=== PATIENT | female | born 1930 | race Caucasian/White ===

== ENCOUNTER 2017-01-19 14:22 | Emergency (ER) | payer MEDICARE, BC ==
[~2017-01-19 14:22] MED LIST: ASAB PO; CARDCD180 PO; ELIQUIS 5 MG TAB5 MG PO; FLAGYL250 MG; FLECAINIDE100 MG PO; FLECAINIDE50 MG PO; GGDM5ML; HYDROCHLOROT12.5 MG PO; IRON325 MG PO; KLOR-CON M1010 MEQ PO; L20 PO; LEVAQUIN750 MG PO; LIPITOR10 PO; NORV5 PO; OMNICEF300 PO; PRILO PO; PROTONIX PO; T PO; VITAMIN B-121000 MC1 SL; [UNRECOGNIZED DRUG - REMARK]
[2017-01-19 16:04] LABS: BASOPHILS 0.6 %; BASOPHILS ABSOLUTE 0.04 10/3/uL (0.0-0.16); EOSINOPHILS 2.6 %; EOSINOPHILS ABSOLUTE 0.17 10/3/uL (0.0-0.53); ER CBC TAT 0 Hrs 05 Mins; IMMATURE GRANULOCYTES 0.2 %; IMMATURE GRANULOCYTES ABSOLUTE 0.01 10/3/uL (0.0-0.11); LYMPHOCYTES 19.4 %; LYMPHOCYTES ABSOLUTE 1.26 10/3/uL (0.67-4.30); MEAN CORPUS HGB CONC 33.3 g/dL (32.0-36.0); MEAN CORPUSCULAR HEMOGLOB 31.7 pg (26.0-34.0); MEAN CORPUSCULAR VOLUME 95.1 fL (80-100); MEAN PLATELET VOLUME 11.2 fL (9.2-13.0); MONOCYTES 7.4 %; MONOCYTES ABSOLUTE 0.48 10/3/uL (0.21-1.20); NEUTROPHILS 69.8 %; NEUTROPHILS ABSOLUTE 4.55 10/3/uL (2.02-8.40); PLATELET COUNT 229 10/3/uL (150-400); RBC DISTRIBUTION WIDTH 13.6 % (12.0-16.0); RED CELL COUNT 3.47 10/6/uL (4.0-5.6); WHITE BLOOD CELLS 6.5 10/3/uL (4.5-10.5)
[2017-01-19 16:05] LABS: MANUAL DIFF NO %
[2017-01-19 16:21] LABS: BUN (BLOOD UREA NITROGEN) 20 MG/DL (6-23); CALCIUM, SERUM 8.7 MG/DL (8.5-10.4); CHEST PAIN PROFILE TAT 0 Hrs 22 Mins; CHLORIDE, SERUM 105 MMOL/L (96-112); CO2 (CARBON DIOXIDE) 26 MMOL/L (24-34); CREATININE 1.29 MG/DL (0.55-1.02); GFR AFRICAN AMERICAN 44 ML/MIN (>=60); GFR NON AFRICAN AMERICAN 38 ML/MIN (>=60); GLUCOSE, SERUM 93 MG/DL (60-99); POTASSIUM, SERUM 3.7 MMOL/L (3.5-5.3); SODIUM, SERUM 142 MMOL/L (135-148); TROPONIN I <0.02 NG/ML (<0.05)
[2017-01-19 16:23] LABS: INTERNATIONAL NORMAL RATI 1.7 UNITS (-); PARTIAL THROMBO TIME 37.1 SEC (22.5-37.2)
[2017-01-19 16:24] LABS: PROTIME (NOT ORD) 19.4 SEC (12.0-14.5)
[2017-04-25] MEDS ORDERED: L40 PO (18:27)
[2017-04-26] MEDS ORDERED: ELIQUIS 2.5 MG2.5 MG PO (11:17)
[2017-04-26] MEDS ORDERED: [UNRECOGNIZED DRUG - OTHER] (11:17)
[2017-04-26] MEDS ORDERED: BENTYL20 PO (11:17)
[2017-04-26] MEDS ORDERED: FERROUS SULF325 M1 PO (11:18)
[2017-04-26] MEDS ORDERED: L40 PO (11:18)
[2017-04-26] MEDS ORDERED: PROTONIX PO (11:19)
[2017-04-26] MEDS ORDERED: KLOR-CON M2020 MEQ PO (11:19)
[2017-04-26] MEDS ORDERED: LOP25 PO (11:19)
[2017-04-26] MEDS ORDERED: ACET500CAP PO (11:20)
[2017-04-26] MEDS ORDERED: CYANO1000T PO (11:20)
[2017-04-26] MEDS ORDERED: LIDODERM TOP (16:44)
[2017-04-26] MEDS ORDERED: ULTRAM50 PO (16:45)
[2017-04-29] MEDS ORDERED: ULTRAM50 PO (11:58)
[2017-06-06] MEDS ORDERED: BENTYL20 PO (16:04)
[2017-06-06] MEDS ORDERED: MEG40 PO (16:04)
[2017-06-06] MEDS ORDERED: GGDM5ML PO (16:06)
== END 2017-01-19 17:43 | disposition home or self-care (01) ==
LOC: ER 14:22
PROVIDERS: Emergency Medicine
DX: R04.0 Epistaxis (principal); I48.91 Unspecified atrial fibrillation; Z86.73 Personal history of transient ischemic attack (TIA), and cerebral infarction without residual deficits; Z88.2 Allergy status to sulfonamides; Z88.8 Allergy status to other drugs, medicaments and biological substances; Z79.899 Other long term (current) drug therapy
CPT/HCPCS: 71010; 80048; 83735; 84484; 85025; 85610; 85730; 93005; 99284

== ENCOUNTER 2017-04-05 08:31 | Inpatient (IN) | payer MEDICARE, BC ==
--- NOTE | ~2017-04-05 | HP ---
History And Physical [place] [id number] [facility] [place]. [address] NAME: SREEKANTH MOSES : 32 STATUS : ADM Heather PAT#: [id number] AGE: 87 ADM/REG DATE : 04/05/17 MR#: [id number] REPORT SERV DATE: 04/05/17 DICTATED BY: DARWIN HESS DATE: 04/05/17 REPORT STATUS : Draft TRANSCRIBED BY: MODL DATE: 04/05/17 DATE OF ADMISSION: 04/05/2017 REASON FOR ADMISSION: Atrial fibrillation with rapid ventricular response. EXAMINING PHYSICIAN: Darwin Hess M.D. HISTORY: This is an 87-year-old white female, who has been having some diarrhea recently. Her primary care, Dr. Kilgore, believes this is due to anxiety and nervousness. She has permanent atrial fibrillation. She had a stroke from the permanent atrial fibrillation back in June and is on Eliquis now, and she had refused anticoagulants prior to that time. She has 60% coronary artery lesion according to daughters. She was having some right shoulder pain that woke her up out of sleep, and she was brought to the emergency room with atrial fibrillation with a rapid ventricular response. She has been quite nervous to Radha, nurse practitioner, who has given her morphine to help with her anxiety. Cardizem has helped control the heart rate. She is on diltiazem. Because she was having some problem with diarrhea, her primary care physician stopped her hydrochlorothiazide for 5 days. She has now had some pulmonary edema. She was having some kidney dysfunction prior to that. She was discovered to have an elevated D-dimer test on arrival, so a CTA of her chest was obtained. It did show no evidence of pulmonary emboli, but cardiomegaly and moderate interstitial edema including bilateral ground glass opacities. She has been seen by Pulmonology, Dr. Strickland, who felt she had no pulmonary pathology. She has no COPD or asthma and has no history of smoking. She also had moderate right posterior pleural effusion and left posterior pleural effusions with some compression atelectasis at bases to account for the shortness of breath. She has known mitral regurgitation and was actually on the operative list at [facility] and actually went to [place] for a mitral valve replacement though the manager behavior there declined to do it because she was fairly well compensated at the time. She follows closely with Dr. Banegas. PAST MEDICAL HISTORY: She had a stroke in June. She was hospitalized here at that time. There was a subacute right frontal stroke. She has severe mitral regurgitation with history of mitral valve prolapse. She had some encephalopathy associated with stroke on admission. She has chronic dysphagia and was thought to have hypoxemia though subsequent workup by Pulmonary was negative. 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 HOME MEDICATIONS: Include the following: Pantoprazole 40 mg p.o. daily, potassium chloride 10 mEq p.o. b.i.d., sodium chloride nasal spray, iron 65 mg [id number] 1 a day, acetaminophen if needed for pain, Maalox if needed for indigestion, Eliquis 5 mg p.o. b.i.d., B12 of 1000 mcg p.o. daily, Bentyl 20 mg p.o. p.r.n. diarrhea, diltiazem XR 180 mg History And Physical [address] [address] NAME: SREEKANTH MOSES : 32 STATUS : ADM Heather PAT#: [id number] AGE: 87 ADM/REG DATE : 04/05/17 MR#: [id number] REPORT SERV DATE: 04/05/17 DICTATED BY: DARWIN HESS DATE: 04/05/17 REPORT STATUS : Draft TRANSCRIBED BY: BRITNEY DATE: 04/05/17 p.o. daily, and HydroDIURIL 12.5 mg p.o. daily. SOCIAL HISTORY: She does not smoke or drink. She attends [employer] in [place]. She lives at home by herself and has been able to function well. FAMILY HISTORY: Strokes run in the family. REVIEW OF SYSTEMS: She had a cholecystectomy remotely and knee arthroscopy. She has coronary artery disease with 60% stenosis in the LAD in the past. She has some osteoarthritis, history of GERD for which she is on the pantoprazole. She does have chronic atrial fibrillation. No swelling in lower extremities. No melena, hematemesis, fits, seizures, convulsions, unilateral weakness, nausea, or vomiting. She has had a history of diarrhea, felt to be an irritable bowel syndrome. No blood in the stool, was thought by Dr. Kilgore to be dehydrated and therefore the hydrochlorothiazide was held. The remainder of the review of systems is negative. PHYSICAL EXAMINATION: GENERAL: A well-developed white female, in no acute distress. Slightly lethargic, sleeping during exam after morphine. VITAL SIGNS: Blood pressure 134/74, heart rate of 90, respiratory rate 18, afebrile. HEENT: EOMI. Sclerae clear. Conjunctivae pink. Eyes slightly deep set. NECK: No bruit without any JVD. CHEST: Clear to A and P. HEART: Irregularly irregular. S1, S2 without murmur, gallop, or click. ABDOMEN: Soft, slightly distended. Bowel sounds positive. Nontender. There is no mass. EXTREMITIES: Have no edema. Distal pulses are intact through the dorsalis pedis and posterior tibial. NEUROLOGIC: She withdraws to plantar stimulation. [employer] equal and symmetric bilaterally. Coordination intact. She has no tremor. She is symmetric and equal neurologically. LYMPHATICS: There is no adenopathy palpable. SKIN: Without rash, ecchymosis, or bruising. LABORATORY DATA: The BNP was 346. Arterial blood gases 7.34, 38, 133 on FiO2 28%. The CT of the chest as above. Portable chest showed pulmonary vascular congestion. The hemoglobin was 11.4, hematocrit 33, white count 8.3, platelets were 259,000. Lactate was 0.9. Sodium 133, potassium 3.9, creatinine 1.05, BUN 17, creatinine clearance was 40 mL a minute. Troponin was 0.03 and magnesium 2.5. ASSESSMENT: 1. Atrial fibrillation with rapid ventricular response. This may be a response to the congestive heart failure with pulmonary edema and exacerbation due to valvular heart disease. 2. Mitral regurgitation. Likely the cause of the pulmonary edema and vascular congestion in the lungs. 3. Pulmonary edema, possibly related to the cessation of the hydrochlorothiazide recently. History And Physical [address] [address] NAME: SREEKANTH MOSES : 32 STATUS : ADM Heather PAT#: [id number] AGE: 87 ADM/REG DATE : 04/05/17 MR#: [id number] REPORT SERV DATE: 04/05/17 DICTATED BY: DARWIN HESS DATE: 04/05/17 REPORT STATUS : Draft TRANSCRIBED BY: MODL DATE: 04/05/17 4. Chest pain, shoulder pain. We will repeat the troponin in the morning. The troponin being normal now would be attributable to other causes. 5. Hypertension, it was quite elevated on arrival, now down, and more reasonably controlled. 6. History of stroke in June. 7. Anticoagulation with Eliquis. 8. She has been having some weight loss recently though numbers cannot be documented and will follow up with Dr. Kilgore with this at a later date. PLAN: I will add small dose diuretic Lasix 20 mg IV and restart her hydrochlorothiazide and replace the potassium. I am going to change her from the Cartia XT which has allowed breakthrough tachycardia to metoprolol. If this is tolerable, I am going to go ahead and give her a dose of Toprol for rate control now and consult Dr. Banegas for confirmation and put her in the CDU and likely taper off the Cardizem drip very soon. The patient asked to not be resuscitated in the event of cardiac arrest though she would take attempts to support life in the event of change in heart rhythm or dehydration. DB/MODL Darwin Hess M.D. / [id number] CC: Eladio Cornejo Jr, MD Matthew Todd Gregg Shander, M.D. Thomas Mullady, M.D.
--- NOTE | ~2017-04-05 | DS ---
Discharge Summary [facility] [address] [place]. [address] NAME: SREEKANTH MOSES : 32 STATUS : DIS IN PAT#: [id number] AGE: 87 ADM/REG DATE : 04/07/17 MR#: [id number] REPORT SERV DATE: 04/09/17 DICTATED BY: DIETER PARK DATE: 04/08/17 REPORT STATUS : Draft TRANSCRIBED BY: MODL DATE: 04/08/17 ADMISSION DATE: 04/07/2017 DISCHARGE DATE: 04/08/2017 DISCHARGE DIAGNOSES: 1. Atrial fibrillation with rapid ventricular response. 2. Acute kidney injury, resolving. Most recent creatinine 1.28. 3. Acute pulmonary edema, resolved. 4. Severe mitral valve regurgitation and prolapse. 5. Hypoxemia. 6. History of cerebrovascular accident. DISCHARGE MEDICATIONS: Eliquis 5 mg twice a day, vitamin B12 1000 mcg daily, Protonix 40 mg daily, potassium chloride 10 mEq twice a day, Lopressor 25 mg twice a day, Tylenol 500 mg every six hours p.r.n., Maalox p.r.n., [place] nasal spray p.r.n., HydroDIURIL 12.5 mg daily, iron 65 mg woun-ntm-mreufri tablet daily, Bentyl 20 mg daily p.r.n. for IBS symptoms. HISTORY OF PRESENT ILLNESS: This is a very pleasant 87-year-old white female who presented originally with some diarrhea, anxiety, shortness of breath. Please see the initial H and P of Dr. Ruslan Meehan. This patient was admitted to the Hospitalist Service for further evaluation and treatment. Initially was placed on some diuresis. Lab work was ordered and followed, and she was placed on a beta-akash therapy for rate control. CONSULTANTS DURING THIS ADMISSION: Include [facility] Cardiology, Dr. Murillo, Dr. Gustafson, and Dr. Banegas. PROCEDURES AND IMAGING DURING THIS ADMISSION: Include a CTA of the chest showing no pulmonary embolus. Cardiomegaly with moderate interstitial edema including bilateral ground glass opacities. Moderate right posterior pleural effusion. Small left posterior pleural effusions with compressive atelectasis at the lung bases. Echocardiogram that showed ejection fraction of 50% to 55%, moderate pulmonary hypertension with severe posterior mitral leaflet prolapse, severe highly eccentric anteriorly directed mitral regurgitation, moderately dilated left atrium. HOSPITAL COURSE: As stated, the patient was given some diuresis with p.o. Lasix and she was changed over to metoprolol having been on Cardizem prior to this admission. Her heart rate improved with her pulse coming down into the 80s. She began to feel some better by the following day, but in review, her blood pressures were on the low end of normal, so an adjustment was made in metoprolol to 25 mg twice a day, which she tolerated better. Further discussion with the patient and family revealed that she had been worked up on a prior basis at [place] for her mitral valve, but was undergoing some followup planning, and workup for her mitral valve here in [place] now, and she will follow up with Dr. Banegas in the [facility] post discharge for further consideration and possibility of surgery in particular mitral valve clip. Her kidney function got slightly worse on the with creatinine bumping to 1.63. Her Lasix was held and she was given gentle IV hydration and her creatinine corrected back down to 1.28. She was felt safe for discharge home on Discharge Summary [address] [place]. [address] NAME: SREEKANTH MOSES : 32 STATUS : DIS IN PAT#: [id number] AGE: 87 ADM/REG DATE : 04/07/17 MR#: [id number] REPORT SERV DATE: 04/09/17 DICTATED BY: DIETER PARK DATE: 04/08/17 REPORT STATUS : Draft TRANSCRIBED BY: BRITNEY DATE: 04/08/17 04/08/2017 with the new medications as described above. Followup planning with Dr. Banegas and the [facility], and she will have home O2 at 2 L nasal cannula at discharge as well, as her room air sats with ambulation have been approximately 88%. Overall, patient is agreement with this plan going forward. Questions were answered at bedside extensively with both the daughter and patient. Please note greater than 30 minutes was spent on this discharge for medication teaching, followup planning, and further disposition. DICTATED BY: Dieter Park NP CSC/BRITNEY Dieter Park NP / [id number] CC: MD COCO Anderson MATTHEW J.
--- NOTE | ~2017-04-05 | CN ---
Consultation Report [facility] [address] [place]. [address] NAME: SREEKANTH MOSES : 32 STATUS : ADM Heather PAT#: [id number] AGE: 87 ADM/REG DATE : 04/05/17 MR#: [id number] REPORT SERV DATE: 04/06/17 DICTATED BY: MICHAEL MURILLO DATE: 04/05/17 REPORT STATUS : Draft TRANSCRIBED BY: MODL DATE: 04/05/17 CARDIOLOGY CONSULTATION DATE OF CONSULTATION: REASON FOR CONSULTATION: Atrial fibrillation with rapid ventricular rate. HISTORY OF PRESENT ILLNESS: The patient is an 87-year-old female with known permanent atrial fibrillation and chronic anticoagulation. History of severe mitral regurgitation with posterior leaflet mitral valve prolapse. The patient with reported GI bleed recently and chronically fatigued for the last week with poor appetite, not eating, and reportedly dehydrated. Recently seen by primary care, who stopped her diuretic approximately five days ago. The patient reports substernal chest discomfort when eating. Denies any exertional chest pain. Denies melena or hematochezia. The patient reportedly is currently undergoing evaluation for mitral valve repair or replacement at [facility]. The patient does report a four-day history of progressive dyspnea. On presentation, the patient was found to be in atrial fibrillation with rapid ventricular rate. The patient reports recent diarrhea with poor p.o. intake. PAST MEDICAL HISTORY: 1. Permanent atrial fibrillation. 2. Chronic anticoagulation, on Eliquis for stroke prophylaxis. 3. Nonrheumatic severe mitral regurgitation secondary to mitral valve prolapse - currently undergoing evaluation at [facility] for consideration for surgical versus percutaneous repair or replacement. 4. GERD. 5. Hyperlipidemia - the patient declines all statins due to previous history of severe muscle weakness. SOCIAL HISTORY: Denies previous tobacco, alcohol, or illicit drug use. Typically lives independently; however, living with daughter over the last week due to severe fatigue and diarrhea. REVIEW OF SYSTEMS: Review of systems negative for all organ systems except per the history of present illness. FAMILY HISTORY: Noncontributory. PHYSICAL EXAMINATION: VITALS: BLOOD PRESSURE 142/80. PULSE 85 currently, previously in the 120s to 130s. Oxygen saturation 92% on 1 L nasal cannula. GENERAL: Elderly female, in no acute distress. HEENT: Normal. NECK: Supple, no JVD or bruit, normal carotid upstroke bilaterally, no thyromegaly. Consultation Report [facility] [address] [place]. [address] NAME: SREEKANTH MOSES : 32 STATUS : ADM Heather PAT#: [id number] AGE: 87 ADM/REG DATE : 04/05/17 MR#: [id number] REPORT SERV DATE: 04/06/17 DICTATED BY: MICHAEL MURILLO DATE: 04/05/17 REPORT STATUS : Draft TRANSCRIBED BY: BRITNEY DATE: 04/05/17 LUNGS: Decreased breath sounds at the bases bilaterally. CARDIOLOGY: Irregularly irregular rhythm. 3/6 holosystolic murmur appreciated best at the apex. ABDOMEN: Bowel sounds positive, soft, nontender, and nondistended. No masses or aortic bruits. No hepatosplenomegaly or hepatojugular reflux. EXTREMITIES: No edema. Normal pulses. No clubbing or cyanosis. SKIN: Warm and dry, no significant rash. NEUROLOGIC: Alert and oriented x 3. Appropriate mood. LABORATORY DATA: CT angiogram of the chest: No evidence of pulmonary emboli. Moderate right pleural effusion. Small left pleural effusion. Bilateral ground-glass opacities. IMPRESSION: 1. Diarrhea with associated weakness. May be contributory to the patient's other symptoms. 2. Permanent atrial fibrillation - currently on diltiazem drip with excellent rate control. Transition to oral medications. 3. Severe mitral regurgitation and mitral valve prolapse - currently undergoing outpatient evaluation at [facility] for same. 4. Congestive heart failure by exam - echocardiogram ordered to evaluate left ventricular systolic function. We will diurese the patient. Thank you for the opportunity to see the patient in consultation. We will continue to follow the patient with you. CSL/MODL Patricio Murillo M.D. / [id number] CC: Michael Champion
[2017-04-05 08:26] LABS: BASOPHILS 0.4 %; BASOPHILS ABSOLUTE 0.03 10/3/uL (0.0-0.16); EOSINOPHILS 1.3 %; EOSINOPHILS ABSOLUTE 0.11 10/3/uL (0.0-0.53); ER CBC TAT 0 Hrs 05 Mins; HEMATOCRIT 33.8 % (36.0-48.0); HEMOGLOBIN 11.4 g/dL (12.0-16.0); IMMATURE GRANULOCYTES 0.1 %; IMMATURE GRANULOCYTES ABSOLUTE 0.01 10/3/uL (0.0-0.11); LYMPHOCYTES 12.9 %; LYMPHOCYTES ABSOLUTE 1.07 10/3/uL (0.67-4.30); MANUAL DIFF NO %; MEAN CORPUS HGB CONC 33.7 g/dL (32.0-36.0); MEAN CORPUSCULAR HEMOGLOB 30.2 pg (26.0-34.0); MEAN CORPUSCULAR VOLUME 89.4 fL (80-100); MEAN PLATELET VOLUME 11.4 fL (9.2-13.0); MONOCYTES 8.3 %; MONOCYTES ABSOLUTE 0.69 10/3/uL (0.21-1.20); NEUTROPHILS ABSOLUTE 6.38 10/3/uL (2.02-8.40); PLATELET COUNT 259 10/3/uL (150-400); RBC DISTRIBUTION WIDTH 13.9 % (12.0-16.0); RED CELL COUNT 3.78 10/6/uL (4.0-5.6); WHITE BLOOD CELLS 8.3 10/3/uL (4.5-10.5)
[2017-04-05 08:38] LABS: INTERNATIONAL NORMAL RATI 1.6 UNITS (-); PARTIAL THROMBO TIME 36.2 SEC (22.5-37.2); PROTIME (NOT ORD) 18.5 SEC (12.0-14.5)
[2017-04-05 08:42] LABS: BUN (BLOOD UREA NITROGEN) 17 MG/DL (6-23); CALCIUM, SERUM 9.3 MG/DL (8.5-10.4); CHEST PAIN PROFILE TAT 0 Hrs 21 Mins; CHLORIDE, SERUM 99 MMOL/L (96-112); CO2 (CARBON DIOXIDE) 25 MMOL/L (24-34); CREATININE 1.05 MG/DL (0.55-1.02); GFR AFRICAN AMERICAN 56 ML/MIN (>=60); GFR NON AFRICAN AMERICAN 48 ML/MIN (>=60); GLUCOSE, SERUM 93 MG/DL (60-99); POTASSIUM, SERUM 3.9 MMOL/L (3.5-5.3); SODIUM, SERUM 133 MMOL/L (135-148); TROPONIN I 0.03 NG/ML (<0.05)
[2017-04-05] MEDS ORDERED: ACET500CAP PO (09:11)
[2017-04-05] MEDS ORDERED: MAALOX PO (09:12)
[2017-04-05] MEDS ORDERED: OCEAN NAS (09:13)
[2017-04-05] MEDS ORDERED: ELIQUIS 2.5 MG2.5 MG PO (09:13)
[2017-04-05] MEDS ORDERED: HCTZ12.5 PO (09:14)
[2017-04-05] MEDS ORDERED: CYANO1000T PO (09:14)
[2017-04-05] MEDS ORDERED: KLOR-CON M2020 MEQ PO (09:15)
[2017-04-05] MEDS ORDERED: IRON 65 MG PO (09:17)
[2017-04-05] MEDS ORDERED: CARTIA XT180 MG/24 PO (09:17)
[2017-04-05] MEDS ORDERED: PROTONIX PO (09:17)
[2017-04-05] MEDS ORDERED: BENTYL20 PO (09:18)
[2017-04-05 10:42] LABS: ALLENS TEST Pos; BE (BASE EXCESS) -5.6 MEQ/L (0 +/- 2.5); CARBOXYHEMOGLOBIN 1.2 % (0-3); DEVICE NC; HCO3 (ACTUAL BICARBONATE) 19.7 MEQ/L (23-27); HEMOBLOGIN CONTENT 12.1 G/DL (12-16); INSTRUMENT SERIAL # 8087; METHEMOGLOBIN 0.3 % (0-3); O2 CONTENT 16.8 VOL% (18-24); PCO2 (CO2 TENSION) 38 MMHG (35-45); PO2 (O2 TENSION) 133 MMHG (79-93); SAMPLE Arterial; pH 7.34 (7.37-7.43)
[2017-04-06 03:48] LABS: BASOPHILS 0.3 %; BASOPHILS ABSOLUTE 0.02 10/3/uL (0.0-0.16); EOSINOPHILS 1.2 %; EOSINOPHILS ABSOLUTE 0.08 10/3/uL (0.0-0.53); HEMATOCRIT 32.5 % (36.0-48.0); IMMATURE GRANULOCYTES 0.1 %; IMMATURE GRANULOCYTES ABSOLUTE 0.01 10/3/uL (0.0-0.11); LYMPHOCYTES 16.3 %; LYMPHOCYTES ABSOLUTE 1.13 10/3/uL (0.67-4.30); MEAN CORPUS HGB CONC 33.8 g/dL (32.0-36.0); MEAN CORPUSCULAR HEMOGLOB 30.6 pg (26.0-34.0); MEAN CORPUSCULAR VOLUME 90.5 fL (80-100); MEAN PLATELET VOLUME 11.4 fL (9.2-13.0); MONOCYTES 9.4 %; MONOCYTES ABSOLUTE 0.65 10/3/uL (0.21-1.20); NEUTROPHILS 72.7 %; NEUTROPHILS ABSOLUTE 5.04 10/3/uL (2.02-8.40); PLATELET COUNT 251 10/3/uL (150-400); RBC DISTRIBUTION WIDTH 13.9 % (12.0-16.0); RED CELL COUNT 3.59 10/6/uL (4.0-5.6); WHITE BLOOD CELLS 6.9 10/3/uL (4.5-10.5)
[2017-04-06 03:50] LABS: MANUAL DIFF NO %
[2017-04-06 04:00] LABS: BUN (BLOOD UREA NITROGEN) 17 MG/DL (6-23); CALCIUM, SERUM 8.9 MG/DL (8.5-10.4); CHLORIDE, SERUM 98 MMOL/L (96-112); CO2 (CARBON DIOXIDE) 27 MMOL/L (24-34); CREATININE 1.22 MG/DL (0.55-1.02); GFR AFRICAN AMERICAN 47 ML/MIN (>=60); GFR NON AFRICAN AMERICAN 40 ML/MIN (>=60); GLUCOSE, SERUM 95 MG/DL (60-99); POTASSIUM, SERUM 3.7 MMOL/L (3.5-5.3); SODIUM, SERUM 133 MMOL/L (135-148)
[2017-04-07 04:34] LABS: ALBUMIN 3.3 G/DL (3.5-5.0); CALCIUM, SERUM 8.8 MG/DL (8.5-10.4); CHLORIDE, SERUM 100 MMOL/L (96-112); CO2 (CARBON DIOXIDE) 28 MMOL/L (24-34); CREATININE 1.63 MG/DL (0.55-1.02); GFR AFRICAN AMERICAN 33 ML/MIN (>=60); GFR NON AFRICAN AMERICAN 28 ML/MIN (>=60); GLUCOSE, SERUM 93 MG/DL (60-99); POTASSIUM, SERUM 3.8 MMOL/L (3.5-5.3); SGOT(AST) 28 U/L (5-40); SGPT(ALT) 37 U/L (5-65); SODIUM, SERUM 136 MMOL/L (135-148); TOTAL BILIRUBIN 0.3 MG/DL (0-1.2)
[2017-04-07 04:37] LABS: A/G RATIO 1.2 (0.7-1.9); ALKALINE PHOSPHATASE 49 U/L (45-117); BUN (BLOOD UREA NITROGEN) 22 MG/DL (6-23); GLOBULIN 2.7 G/DL (2.5-4.1)
[2017-04-07 08:12] LABS: ASCORBIC ACID (UR NOT ORDER) NEG (NEG); BILIRUBIN, URINE NEGATIVE (NEG); KETONE, URINE NEGATIVE (NEG); LEUKOCYTE ESTERASE(NOT OR MOD (NEG); WBC (NOT ORDERED) (RFLEX) 14 (0-5)
[2017-04-07 22:30] LABS: ASCORBIC ACID (UR NOT ORDER) NEG (NEG); BILIRUBIN, URINE NEGATIVE (NEG); KETONE, URINE NEGATIVE (NEG); LEUKOCYTE ESTERASE(NOT OR MOD (NEG); WBC (NOT ORDERED) (RFLEX) 17 (0-5)
[2017-04-08 04:25] LABS: CALCIUM, SERUM 8.9 MG/DL (8.5-10.4); CHLORIDE, SERUM 102 MMOL/L (96-112); CO2 (CARBON DIOXIDE) 28 MMOL/L (24-34); CREATININE 1.28 MG/DL (0.55-1.02); GFR AFRICAN AMERICAN 44 ML/MIN (>=60); GFR NON AFRICAN AMERICAN 38 ML/MIN (>=60); GLUCOSE, SERUM 85 MG/DL (60-99); POTASSIUM, SERUM 4.1 MMOL/L (3.5-5.3); SODIUM, SERUM 136 MMOL/L (135-148)
[2017-04-08 04:26] LABS: BUN (BLOOD UREA NITROGEN) 18 MG/DL (6-23)
[2017-04-08] MEDS ORDERED: LOP25 PO (12:49)
[2017-04-25] MEDS ORDERED: L40 PO (18:27)
[2017-04-26] MEDS ORDERED: [UNRECOGNIZED DRUG - OTHER] (11:17)
[2017-04-26] MEDS ORDERED: ELIQUIS 2.5 MG2.5 MG PO (11:17)
[2017-04-26] MEDS ORDERED: BENTYL20 PO (11:17)
[2017-04-26] MEDS ORDERED: FERROUS SULF325 M1 PO (11:18)
[2017-04-26] MEDS ORDERED: L40 PO (11:18)
[2017-04-26] MEDS ORDERED: LOP25 PO (11:19)
[2017-04-26] MEDS ORDERED: KLOR-CON M2020 MEQ PO (11:19)
[2017-04-26] MEDS ORDERED: PROTONIX PO (11:19)
[2017-04-26] MEDS ORDERED: CYANO1000T PO (11:20)
[2017-04-26] MEDS ORDERED: ACET500CAP PO (11:20)
[2017-04-26] MEDS ORDERED: LIDODERM TOP (16:44)
[2017-04-26] MEDS ORDERED: ULTRAM50 PO (16:45)
[2017-04-29] MEDS ORDERED: ULTRAM50 PO (11:58)
[2017-06-06] MEDS ORDERED: MEG40 PO (16:04)
[2017-06-06] MEDS ORDERED: BENTYL20 PO (16:04)
[2017-06-06] MEDS ORDERED: GGDM5ML PO (16:06)
== END 2017-04-08 16:20 | disposition home or self-care (01) | DRG 291 ==
LOC: ER 08:31 → CDU1 11:48 → 2SO 04-07 16:01
PROVIDERS: Emergency Medicine; Nurse Practitioner Family; Student in an Organized Health Care Education/Training Program
DX: I11.0 Hypertensive heart disease with heart failure (principal); J81.0 Acute pulmonary edema; J96.01 Acute respiratory failure with hypoxia; N17.9 Acute kidney failure, unspecified; J90 Pleural effusion, not elsewhere classified; I27.2 Other secondary pulmonary hypertension; E86.0 Dehydration; R13.12 Dysphagia, oropharyngeal phase; I48.2 Chronic atrial fibrillation; N39.0 Urinary tract infection, site not specified; I36.1 Nonrheumatic tricuspid (valve) insufficiency; J98.11 Atelectasis; I50.9 Heart failure, unspecified; I34.0 Nonrheumatic mitral (valve) insufficiency; K58.0 Irritable bowel syndrome with diarrhea; I25.10 Atherosclerotic heart disease of native coronary artery without angina pectoris; E78.5 Hyperlipidemia, unspecified; R53.1 Weakness; K21.9 Gastro-esophageal reflux disease without esophagitis; F41.9 Anxiety disorder, unspecified; R07.9 Chest pain, unspecified; R09.02 Hypoxemia; Z79.01 Long term (current) use of anticoagulants; Z86.73 Personal history of transient ischemic attack (TIA), and cerebral infarction without residual deficits; Z88.2 Allergy status to sulfonamides; Z82.3 Family history of stroke; Z98.890 Other specified postprocedural states
CPT/HCPCS: 36600; 71010; 71275; 80048; 80053; 81001; 82570; 82805; 83605; 83735; 83880; 84300; 84484; 85025; 85379; 85610; 85730; 87040; 87086; 93005; 93306; 96374; 96375; 96376; 99285; A9270-GY; J1940; J2405; Q9967